=== PATIENT | female | born 1965 | race Caucasian/White ===

== ENCOUNTER → 2016-10-21 | Outpatient (CLI) | payer OTHER ==
[~2016-10-21] MED LIST: ACET-1256 PO; ASPI81TA28 PO; ATOR-26 PO; AZEL0.055 OPB; CYAN100T PO; CYCL10TA6 PO; DTR5 PO; FLUT0.0529 NAE; HYDR50CA2 PO; MELO7.5T5 PO; METO25TA3 PO; MULT-506 PO; NICO21DI12 TD; OMEG10007 PO; OPTIRAY 300 IV PRN; OXYC5TAB PO; PHEN-1043 PO; PRLSR20 PO; QUET1TAB32 PO; QUET400T PO; RANI150T3 PO; SERT-234 PO; SERT50TA PO; TRAM-10 PO
--- NOTE | 2016-10-21 14:25 | DIAGNOSTIC IMAGING REPORT ---
IVP W/OR W/O TOMOGRAMS CLINICAL HISTORY: History of prior left ureteral injury. Nephrolithiasis. COMPARISON STUDY: 04/08/2016 FINDINGS: The conductor sleeping car film reveals a tiny left renal calculi. The patient was injected with 100 cc of Optiray 300. The 1 minute film reveals prompt bilateral nephrograms. The right kidney measures 13.8 cm in length. The left kidney measures 14.8 cm in length. There is prompt bilateral excretion. Single nondilated ureters drain each kidney. There is no evidence of significant calyceal displacement. There is no hydronephrosis. There is no evidence of urine extravasation. There is a tiny post void residual. IMPRESSION: Left-sided nephrolithiasis. Otherwise normal study. Electronically signed by: Frank Hurst M.D. 10/21/2016 2:24 PM Dictated Date/Time: 10/21/2016 2:22 PM
== END | disposition home or self-care (01) ==
LOC: C.RAD 12:54
PROVIDERS: ATTEND Urology
DX: N20.0 Calculus of kidney (principal)